=== PATIENT | female | born 2000 | race Two or more races ===

== ENCOUNTER 2023-04-09 12:10 | Observation (INO) | payer MEDICAID ==
[2023-04-09 13:43] LABS: Urine Bacteria FEW /hpf (None Seen); Urine Blood Negative /uL (Negative); Urine Clarity Clear (Clear); Urine Color Yellow (Yellow); Urine Mucus FEW (None Seen); Urine Protein, UAD TRACE (Negative); Urine Urobilinogen Normal (Negative); Urine WBC 28 /hpf (0 - 5)
[2023-04-09] MEDS ORDERED: PREN-96 PO (14:13)
[2023-04-09] MEDS ORDERED: CEPH250C PO (14:13)
== END 2023-04-09 14:08 | disposition home or self-care (01) ==
LOC: LDRP 12:10 → UNDOADMOB 12:10 → LDRP 12:40 → UNDODISOB 14:08
PROVIDERS: ADMIT Obstetrics & Gynecology; ATTEND Obstetrics & Gynecology
DX: O23.43 Unspecified infection of urinary tract in pregnancy, third trimester (principal); Z3A.36 36 weeks gestation of pregnancy; Z79.899 Other long term (current) drug therapy
CPT/HCPCS: 59025; 81001; 81002; 82948; G0378

== ENCOUNTER 2023-05-06 13:01 | Observation (INO) | payer MEDICAID ==
[~2023-05-06 13:01] MED LIST: CEPH250C PO; PREN-96 PO
== END 2023-05-06 14:28 | disposition home or self-care (01) ==
LOC: LDRP 13:01 → UNDOADMOB 13:01 → LDRP 13:08
PROVIDERS: ADMIT Obstetrics & Gynecology; ATTEND Obstetrics & Gynecology
DX: O48.0 Post-term pregnancy (principal); Z3A.40 40 weeks gestation of pregnancy; Z87.891 Personal history of nicotine dependence
CPT/HCPCS: 59025; 76818; 81002; G0378

== ENCOUNTER 2023-05-08 12:01 | Observation (INO) | payer MEDICAID | END 2023-05-08 13:33 | disposition home or self-care (01) | LOC: UNDOADMOB 12:01 → LDRP 12:01 → UNDODISOB 13:33 | PROVIDERS: ADMIT Obstetrics & Gynecology; ATTEND Obstetrics & Gynecology | DX: O48.0 Post-term pregnancy (principal); Z3A.40 40 weeks gestation of pregnancy; Z87.891 Personal history of nicotine dependence | CPT/HCPCS: 59025; 76818; 81002; G0378 ==

== ENCOUNTER 2023-05-10 10:51 | Observation (INO) | payer MEDICAID ==
[~2023-05-10] VITALS: Ht 170.2 cm; Wt 99.3 kg
[~2023-05-10 10:51] MED LIST changes: -CEPH250C PO
== END 2023-05-10 12:17 | disposition home or self-care (01) ==
LOC: LDRP 10:51
PROVIDERS: ADMIT Obstetrics & Gynecology; ATTEND Obstetrics & Gynecology
DX: O48.0 Post-term pregnancy (principal); Z87.891 Personal history of nicotine dependence; Z3A.40 40 weeks gestation of pregnancy
CPT/HCPCS: 59025; 76818; 81002; 94760; G0378

== ENCOUNTER 2023-05-12 11:00 | Inpatient (IN) | payer MEDICAID ==
[~2023-05-12] VITALS: Ht 170.2 cm; Wt 101.2 kg
[2023-05-12] MEDS ORDERED: PHISODERM TOP SOLN 240ML BTL TOP PRN (11:45)
[2023-05-12] MEDS ORDERED: WITCH HAZEL-GLYCERIN PAD TOP PRN (11:45)
[2023-05-12] MEDS ORDERED: BUTORPHANOL TARTRATE 2 MG/1 ML VIAL IV PRN ×2 (11:45)
[2023-05-12] MEDS ORDERED: LIDOCAINE 2%HCL (LOCAL ANESTH.) INJ 20ML MDV IJ PRN (11:45)
[2023-05-12] MEDS ORDERED: DERMOPLAST 60ML BOTTLE TOP PRN (11:45)
[2023-05-12] MEDS ORDERED: PROMETHAZINE HCL 25 MG/ML 1ML IV PRN (11:45)
[2023-05-12 12:03] LABS: Urine Bacteria MOD /hpf (None Seen); Urine Blood 2+ /uL (Negative); Urine Clarity CLOUDY (Clear); Urine Color Yellow (Yellow); Urine Hyaline Cast FEW /lpf (0 - 2); Urine Mucus FEW (None Seen); Urine Protein, UAD TRACE (Negative); Urine Specific Gravity 1.019 (1.001-1.035); Urine Urobilinogen Normal (Negative); Urine WBC 43 /hpf (0 - 5)
[2023-05-12 12:19] LABS: Amphetamine Screen, Urine Neg (NEGATIVE)
[2023-05-12 12:20] LABS: Barbiturate Scree,Urine Neg (NEGATIVE); Benzodiazephine Screen, Urine Neg (NEGATIVE); Cannabinoid Screen, Urine Neg (NEGATIVE); Cocaine Screen, Urine Neg (NEGATIVE); Opiate Scree,Urine Neg (NEGATIVE); Phencyclidine Screen, Urine Neg (NEGATIVE)
[2023-05-12 12:32] LABS: Basophils # (auto) 0 10 ^3/uL (0-0.2); Basophils % (auto) 0.3 % (0.0-2.0); Eosinophils # (auto) 0.1 10 ^3/uL (0-0.8); Hematocrit 35.3 % (36.0-46.0); Hemoglobin 11.6 g/dL (12.2-16.2); Lymphocytes # (auto) 1.2 10 ^3/uL (0.4-5.4); Lymphocytes % (auto) 13.3 % (10.0-50.0); Mean Corpuscular Hemoglobin 27.8 pg (28.0-32.0); Mean Corpuscular Hgb Conc. 32.9 g/dL (32.0-36.0); Mean Corpuscular Volume 84.4 fL (80.0-100.0); Monocytes # (auto) 0.7 10 ^3/uL (0-1.3); Monocytes % (auto) 7.5 % (0.0-12.0); Neutrophils # (auto) 6.8 10 ^3/uL (1.6-8.6); Neutrophils % (auto) 77.9 % (37.0-80.0); Red Blood Cells 4.18 10^6/uL (4.0-5.20); Red Cell Distribution Width 15.4 % (11.8-14.3); White Blood Cell 8.7 10^3/uL (4.4-10.8)
[2023-05-12 12:38] LABS: INR 0.96 (0.9-1.15); Partial Thromboplastin Time 28.8 SEC (24.5-34.5); Prothrombin Time 10.1 sec (9.3-11.8)
[2023-05-12 12:42] LABS: Alanine Aminotransferase 27 U/L (7-40); Albumin 3.7 g/dL (3.2-4.8); Alkaline Phosphatase 160 U/L (46-116); Anion Gap 9 (5-15); Aspartate Aminotransferase 20 U/L (13-40); BUN/Creatinine Ratio 8.9 (10.0-20.0); Blood Urea Nitrogen 5 mg/dL (9-23); Carbon Dioxide 21 mmol/L (20-30); Chloride 108 mmol/L (98-107); Glucose 77 mg/dL (74-106); Potassium 3.7 mmol/L (3.5-5.1); Sodium 138 mmol/L (136-145)
[2023-05-12 12:43] LABS: Bilirubin, Total 0.4 mg/dL (0.2-1.0); Total Protein 6.7 g/dL (5.7-8.2)
[2023-05-12] MEDS ORDERED: miSOPROStol 50 MCG per PRE-CUT 1/2 TAB PO PRN (14:15)
[2023-05-12] MEDS ORDERED: fentaNYL CITRATE 100 MCG/2 ML VL IV PRN (15:00)
[2023-05-12] MEDS ORDERED: MINERAL OIL TOPICAL 10ml TOP PRN (15:00)
[2023-05-12] MEDS ORDERED: PENICILLIN G POT 5MIL/D5 50ML 50 ML IV ONE (15:00)
[2023-05-12] MEDS ORDERED: PROMETHAZINE HCL 25 MG/ML 1ML IM PRN (15:00)
[2023-05-12] MEDS ORDERED: LACT. RINGERS/OXYTOCIN 20UNITS 1,000 ML IV SCH (15:30)
[2023-05-12] MEDS ORDERED: TERBUTALINE SULFATE 1 MG/ML 1ML VIAL SC PRN (15:30)
[2023-05-12] MEDS ORDERED: LACT. RINGERS/OXYTOCIN 20UNITS 500 ML IV ONE ×2 (15:30→16:00)
[2023-05-12] MEDS: LACTATED RINGER'S 1,000 ML IV SCH ×2 (17:08→18:24)
[2023-05-12] MEDS ORDERED: PENICILLIN G POTASSIUM 2,500,000 UNITS in D5W 5% 50 ML IV SCH (19:00)
[2023-05-13] MEDS ORDERED: LIDOCAINE HCL 2 %PF INJ 10ML AMP IJ ONE (00:45)
[2023-05-13] MEDS ORDERED: ePHEDrine SULFATE 50 MG/ML AMP IV ONE (00:45)
[2023-05-13] MEDS ORDERED: NALOXONE HCL 0.4 MG/ML VIAL IV ONE (00:45)
[2023-05-13] MEDS ORDERED: LACTATED RINGER'S 1,000 ML IV ONE (00:45)
[2023-05-13] MEDS ORDERED: fentaNYL CITRATE 100 MCG/2 ML VL IV ONE (00:45)
[2023-05-13] MEDS ORDERED: ROPIVACAINE HCL 100 ML ONE ×2 (01:22→06:29)
[2023-05-13] MEDS: LACTATED RINGER'S 1,000 ML IV SCH ×3 (04:34→19:45)
[2023-05-13 08:06] LABS: RPR Non Reactive (Non Reactive)
[2023-05-13] MEDS ORDERED: METHYLERGONOVINE MALEATE 0.2 MG/ML AMP IM ONE ×2 (10:13→10:15)
[2023-05-13] MEDS ORDERED: ACETAMINOPHEN 325 MG TAB PO PRN (10:15)
[2023-05-13] MEDS ORDERED: ONDANSETRON ODT 4 MG TAB PO PRN (10:15)
[2023-05-13] MEDS: IBUPROFEN 600 MG TAB PO PRN ×2 (13:14→19:31)
[2023-05-13] MEDS: ceFAZolin 1GM/50ML 50 ML IV SCH ×2 (14:08→21:37)
[2023-05-13 15:00] VITALS: BP 109/72; PULSE 98; RESP 17; TEMP 98.6; O2SAT 97
[2023-05-13 19:00] VITALS: BP 118/70; PULSE 98; RESP 12; TEMP 98.1; O2SAT 96
[2023-05-13 23:05] VITALS: BP 116/69; PULSE 91; RESP 17; TEMP 98.6; O2SAT 95
[2023-05-14] MEDS ORDERED: FERR30CA PO (03:38)
[2023-05-14] MEDS ORDERED: IBU600T PO (03:38)
[2023-05-14] MEDS ORDERED: DOCU-94 PO (03:38)
[2023-05-14] MEDS: LACTATED RINGER'S 1,000 ML IV SCH (03:45)
[2023-05-14 04:00] VITALS: BP 124/84; PULSE 78; RESP 12; TEMP 98.2; O2SAT 96
[2023-05-14] MEDS: IBUPROFEN 600 MG TAB PO PRN (05:06)
[2023-05-14] MEDS: ceFAZolin 1GM/50ML 50 ML IV SCH (05:45)
[2023-05-14 06:26] LABS: Basophils # (auto) 0 10 ^3/uL (0-0.2); Basophils % (auto) 0.3 % (0.0-2.0); Eosinophils # (auto) 0.2 10 ^3/uL (0-0.8); Eosinophils % (auto) 1.7 % (0.0-7.0); Hematocrit 30.6 % (36.0-46.0); Hemoglobin 9.9 g/dL (12.2-16.2); Lymphocytes # (auto) 1.7 10 ^3/uL (0.4-5.4); Lymphocytes % (auto) 15.5 % (10.0-50.0); Mean Corpuscular Hemoglobin 27.3 pg (28.0-32.0); Mean Corpuscular Hgb Conc. 32.3 g/dL (32.0-36.0); Mean Corpuscular Volume 84.7 fL (80.0-100.0); Monocytes # (auto) 0.8 10 ^3/uL (0-1.3); Monocytes % (auto) 7.1 % (0.0-12.0); Neutrophils # (auto) 8.2 10 ^3/uL (1.6-8.6); Neutrophils % (auto) 75.4 % (37.0-80.0); Red Blood Cells 3.62 10^6/uL (4.0-5.20); Red Cell Distribution Width 15.3 % (11.8-14.3); White Blood Cell 10.8 10^3/uL (4.4-10.8)
[2023-05-14 07:00] VITALS: BP 117/62; PULSE 90; RESP 20; TEMP 98.4; O2SAT 95
[2023-05-14] MEDS ORDERED: TETANUS-DIPTH-ACEL PERTUSSIS 0.5ML SYR Tdap IM ONE (10:00)
[2023-05-14 19:06] LABS: Treponema pallidum Ab (FTA-Ab) Non Reactive (Non Reactive)
== END 2023-05-14 11:28 | disposition home or self-care (01) | DRG 560 ==
LOC: LDRP 11:00 → OBSVTOIN 11:00 → LDRP 12:43
PROVIDERS: ADMIT Obstetrics & Gynecology; ATTEND Obstetrics & Gynecology
PROC: 10E0XZZ Delivery of Products of Conception, External Approach (ICD-10-PCS; principal; 2023-05-13)
PROC: 0UQMXZZ Repair Vulva, External Approach (ICD-10-PCS; 2023-05-13)
PROC: 3E0R3BZ Introduction of Anesthetic Agent into Spinal Canal, Percutaneous Approach (ICD-10-PCS; 2023-05-13)
PROC: 00HU33Z Insertion of Infusion Device into Spinal Canal, Percutaneous Approach (ICD-10-PCS; 2023-05-13)
DX: O48.0 Post-term pregnancy (principal); Z37.0 Single live birth; D64.9 Anemia, unspecified; O71.82 Other specified trauma to perineum and vulva; O99.824 Streptococcus B carrier state complicating childbirth; O77.0 Labor and delivery complicated by meconium in amniotic fluid; O90.81 Anemia of the puerperium; Z3A.41 41 weeks gestation of pregnancy
CPT/HCPCS: 36415; 59025; 59409; 80053; 80307; 81001; 85025; 85610; 85730; 86592; 86850; 86900; 86901; 90715; 94760; 94762; 96360; 96361; 96365; 96366; 96372; G0378; J2540; J2590; J7060

== ENCOUNTER 2024-11-02 11:35 | Observation (INO) | payer MEDICAID ==
[~2024-11-02 11:35] MED LIST changes: +DOCU-94 PO; +FERR30CA PO; +IBU600T PO
[2024-11-02] MEDS ORDERED: CHOL20007 PO (12:22)
[2024-11-02 12:25] LABS: Hematocrit 35.7 % (36.0-46.0); Hemoglobin 12.1 g/dL (12.2-16.2); Mean Corpuscular Hemoglobin 27.9 pg (28.0-32.0); Mean Corpuscular Volume 82.7 fL (80.0-100.0); Nucleated Red Blood Cells % 0.1 %
[2024-11-02 12:37] LABS: Urine Protein, UAD TRACE (Negative)
[2024-11-02 12:38] LABS: Alanine Aminotransferase 22 U/L (7-40); Albumin 3.9 g/dL (3.2-4.8); Alkaline Phosphatase 123 U/L (46-116); Anion Gap 9 (5-15); BUN/Creatinine Ratio 14.8 (10.0-20.0); Bilirubin, Total 0.3 mg/dL (0.2-1.0); Blood Urea Nitrogen 8 mg/dL (9-23); Calcium 8.5 mg/dL (8.7-10.4); Carbon Dioxide 23 mmol/L (20-31); Chloride 107 mmol/L (98-107); Glucose 83 mg/dL (74-106); Potassium 3.8 mmol/L (3.5-5.1); Sodium 139 mmol/L (136-145); Total Protein 6.9 g/dL (5.7-8.2); Uric Acid 3.5 mg/dL (3.1-7.8)
[2024-11-02 12:41] LABS: INR 0.97 (0.9-1.15); Partial Thromboplastin Time 28.0 SEC (24.5-34.5); Prothrombin Time 10.3 sec (9.3-11.8)
[2024-11-02 12:46] LABS: Protein, Urine 34.7 mg/dL (1-14)
--- NOTE | 2024-11-02 14:16 | DVH ---
CLINICAL HISTORY: -induced hypertension. COMPARISON: US BIOPHYSICAL PROFILE on DOS: 05/10/23, US BIOPHYSICAL PROFILE on DOS: 05/08/23, US BIOPHYSI LAUREL PROFILE on DOS: 05/06/23 TECHNIQUE: biophysical profile was performed. Transabdominal sonographic images of the fetus we re obtained. Transvaginal imaging was performed to evaluate the cervix. FINDINGS: The fetus is in cephalic position. heart rate measures 152 BPM. Amniotic fluid index measures 16.4 cm. The placenta is posterior in position without evidence of previa or abruption. Cerv ix appears closed on transvaginal examination measures up to 3.9 cm in length. BPP profile is an overall score of 6/8, with 0/2 points for breathing, without at least o ne episode of breathing over a 30 second duration during a 30 minute observation, 2/2 points for feta l movements, with 3 or more discrete body or limb movements, 2/2 points for tone, with one or m ore episodes of extremity extension with return to flexion, or opening and closing of hand, and 2/2 points for amniotic fluid, with at least 1 pocket of amniotic fluid that measures 2 cm in 2 perp endicular planes. IMPRESSION: 1. BPP score of 6/8, with 0/2 score for breathing. 2. Cervix appears closed and measures 3.9 cm.
--- NOTE | 2024-11-04 08:00 | DVHDS2 ---
Physician Discharge Progress N Final Diagnosis: pih Operations or Procedures: Operations or Procedures nst reactive reviwed,sono Condition on Discharge: Good Disposition: Home Discharge Instructions: Diet: Regular Activity: No Restrictions, As Tolerated Medications: na Follow Up Care: Specialist: 1d Discharge Statement: "Patient was advised to return to the ER or call 911 if any headaches, dizziness, shortness of breath, chest pain, abdominal pain, bleeding, fevers, or worsening of medical condition. Patient was counseled about treatment plan, medications, possible side effects, patientverbalized understanding. All questions were answered to the best of my ability. This discharge took greater then 30 minutes in planning, reviewing documentation, counseling the patient, and discussing with other team members." Visit Coding OBGYN Date of Service: Nov 02, 2024 Billing Provider: LILLY BUSTAMANTE DO DIRECT SUPPORT PROFESSIONAL Common Visit Codes: [id number] INP/OBS CARE (HIGH) DIRECT SUPPORT PROFESSIONAL Procedure Codes: 69325-03- NON-STRESS TEST LILLY BUSTAMANTE DO Nov 04, 2024 08:00
== END 2024-11-02 14:08 | disposition home or self-care (01) ==
LOC: LDRP 11:35
PROVIDERS: ADMIT Obstetrics & Gynecology; ATTEND Obstetrics & Gynecology
DX: O13.3 Gestational [pregnancy-induced] hypertension without significant proteinuria, third trimester (principal); Z3A.36 36 weeks gestation of pregnancy; Z79.899 Other long term (current) drug therapy; Z98.890 Other specified postprocedural states
CPT/HCPCS: 36415; 59025; 76817; 76819; 80053; 81001; 81002; 82570; 84156; 84550; 85025; 85610; 85730; 94760; G0378

== ENCOUNTER 2024-11-03 08:02 | Observation (INO) | payer MEDICAID ==
[~2024-11-03 08:02] MED LIST changes: +CHOL20007 PO
--- NOTE | 2024-11-03 09:05 | DVH ---
BIOPHYSICAL PROFILE HISTORY: PIH TECHNIQUE: Multiple transabdominal real-time grayscale sonographic images through the gravid uterus o f the fetus with duplex doppler color flow and M-mode spectral analysis FINDINGS: BIOPHYSICAL PROFILE: breathing score: 2 movement score: 2 tone score: 2 Quantitative DENIZ score: 2 (DENIZ: 15.2 cm.) Total score: 8/8 Single live fetus in cephalic presentation. heart rate 149 beats per minute. Posterior placenta without previa or abruption Biophysical profile score 8/8 corresponding to an MATTIE of 11/29/24 IMPRESSION: Biophysical profile score: 8/8
--- NOTE | 2024-11-04 07:50 | DVHDS2 ---
Physician Discharge Progress N Final Diagnosis: pih 36wks Operations or Procedures: Operations or Procedures nst reactive reviwed,sono Condition on Discharge: Good Disposition: Home Discharge Instructions: Diet: Consistent carbohydrate Activity: No Restrictions, As Tolerated Medications: na Follow Up Care: Specialist: 3d Discharge Statement: "Patient was advised to return to the ER or call 911 if any headaches, dizziness, shortness of breath, chest pain, abdominal pain, bleeding, fevers, or worsening of medical condition. Patient was counseled about treatment plan, medications, possible side effects, patientverbalized understanding. All questions were answered to the best of my ability. This discharge took greater then 30 minutes in planning, reviewing documentation, counseling the patient, and discussing with other team members." Visit Coding OBGYN Date of Service: Nov 03, 2024 Billing Provider: LILLY BUSTAMANTE DO SELF SEALING FUEL TANK BUILDER Common Visit Codes: [id number] INP/OBS CARE (HIGH) SELF SEALING FUEL TANK BUILDER Procedure Codes: 24654-49- NON-STRESS TEST LILLY BUSTAMANTE DO Nov 04, 2024 07:50
== END 2024-11-03 09:16 | disposition home or self-care (01) ==
LOC: LDRP 08:02 → UNDOADMOB 08:02 → LDRP 08:15 → UNDODISOB 09:16
PROVIDERS: ADMIT Obstetrics & Gynecology; ATTEND Obstetrics & Gynecology
DX: O13.3 Gestational [pregnancy-induced] hypertension without significant proteinuria, third trimester (principal); Z3A.36 36 weeks gestation of pregnancy; Z79.899 Other long term (current) drug therapy
CPT/HCPCS: 59025; 76819; 81002; 94760; G0378

== ENCOUNTER 2024-11-06 10:52 | Observation (INO) | payer MEDICAID ==
[2024-11-06 11:34] LABS: Protein, Urine 38.0 mg/dL (1-14)
--- NOTE | 2024-11-06 11:34 | DVH ---
BIOPHYSICAL PROFILE HISTORY: PIH Comparison Study: US BIOPHYSICAL PROFILE on DOS: 11/03/24, US BIOPHYSICAL PROFILE on DOS: 11/02/24, US BI OPHYSICAL PROFILE on DOS: 05/10/23 TECHNIQUE: Multiple real-time grayscale sonographic images through the gravid uterus of the fetus wit h duplex doppler color flow and M-mode spectral analysis FINDINGS: BIOPHYSICAL PROFILE: breathing score: 2 movement score: 2 tone score: 2 Quantitative DENIZ score: 2 (DENIZ: 11.6 cm.) Total score: 8/8 Single live fetus in cephalic presentation. heart rate 144 beats per minute. Posterior placenta without previa or abruption Biophysical profile score 8/8 corresponding to an MATTIE of 11/29/24 IMPRESSION: Biophysical profile score: 8/8
[2024-11-06 11:39] LABS: Urine Total Volume, 24 Hours 250.0 mL
[2024-11-06 12:12] LABS: 24 Hr. Total Protein, Urine 73.5 mg/24 Hr (<149.1); Protein, Urine 29.4 mg/dL (1-14)
--- NOTE | 2024-11-06 21:23 | DVHDS2 ---
Physician Discharge Progress N Final Diagnosis: pih ruled out 36wks Operations or Procedures: Operations or Procedures nst reactive reviwed,sono Condition on Discharge: Good Disposition: Home Discharge Instructions: Diet: Regular Activity: Light activity Medications: na Follow Up Care: Specialist: 1w Discharge Statement: "Patient was advised to return to the ER or call 911 if any headaches, dizziness, shortness of breath, chest pain, abdominal pain, bleeding, fevers, or worsening of medical condition. Patient was counseled about treatment plan, medications, possible side effects, patientverbalized understanding. All questions were answered to the best of my ability. This discharge took greater then 30 minutes in planning, reviewing documentation, counseling the patient, and discussing with other team members." Visit Coding OBGYN Date of Service: Nov 06, 2024 Billing Provider: LILLY BUSTAMANTE DO CAN WORKER Common Visit Codes: [id number] INP/OBS CARE (LOW), [id number] INP/OBS CARE (HIGH) CAN WORKER Procedure Codes: 58422-07- NON-STRESS TEST LILLY BUSTAMANTE DO Nov 06, 2024 21:23
== END 2024-11-06 12:29 | disposition home or self-care (01) ==
LOC: LDRP 10:52
PROVIDERS: ADMIT Obstetrics & Gynecology; ATTEND Obstetrics & Gynecology
DX: O13.3 Gestational [pregnancy-induced] hypertension without significant proteinuria, third trimester (principal); Z3A.36 36 weeks gestation of pregnancy; Z79.899 Other long term (current) drug therapy; Z98.890 Other specified postprocedural states
CPT/HCPCS: 59025; 76819; 81002; 82570; 84156; 94760; G0378

== ENCOUNTER 2024-11-29 11:32 | Observation (INO) | payer MEDICAID ==
[~2024-11-29] VITALS: Ht 170.2 cm; Wt 105.2 kg
[2024-11-29 13:00] LABS: Hematocrit 37.4 % (36.0-46.0); Hemoglobin 12.6 g/dL (12.2-16.2); Mean Corpuscular Hemoglobin 29.3 pg (28.0-32.0); Mean Corpuscular Volume 86.9 fL (80.0-100.0); Nucleated Red Blood Cells % 0.1 %
[2024-11-29 13:12] LABS: INR 0.94 (0.9-1.15); Partial Thromboplastin Time 27.7 SEC (24.5-34.5); Prothrombin Time 10.0 sec (9.3-11.8)
[2024-11-29 13:13] LABS: Alanine Aminotransferase 25 U/L (7-40); Albumin 3.7 g/dL (3.2-4.8); Anion Gap 7 (5-15); BUN/Creatinine Ratio 15.4 (10.0-20.0); Carbon Dioxide 24 mmol/L (20-31); Potassium 4.0 mmol/L (3.5-5.1); Sodium 139 mmol/L (136-145); Total Protein 6.5 g/dL (5.7-8.2); Uric Acid 3.8 mg/dL (3.1-7.8)
[2024-11-29 13:17] LABS: Alkaline Phosphatase 134 U/L (46-116); Bilirubin, Total 0.2 mg/dL (0.2-1.0); Blood Urea Nitrogen 8 mg/dL (9-23); Calcium 8.5 mg/dL (8.7-10.4); Chloride 108 mmol/L (98-107); Glucose 111 mg/dL (74-106)
--- NOTE | 2024-11-29 13:20 | DVH ---
BIOPHYSICAL PROFILE HISTORY: PIH TECHNIQUE: Multiple transabdominal real-time grayscale sonographic images through the gravid uterus of the fetus with duplex Doppler color flow and M-mode spectral analysis FINDINGS: BIOPHYSICAL PROFILE: breathing score: 2 movement score: 2 tone score: 2 Quantitative DENIZ score: 2 (DENIZ: 11.2 Cm.) Total score: 8 The cervix is not well-visualized Single live fetus in cephalic presentation. heart rate 162 beats per minute. Fundal placenta without previa or abruption IMPRESSION: Biophysical profile score: 8
[2024-11-29 13:49] LABS: Urine Protein, UAD 1+ (Negative)
[2024-11-29 13:51] LABS: Protein, Urine 26.8 mg/dL (1-14)
--- NOTE | 2024-11-29 14:53 | DVHDS2 ---
Physician Discharge Progress N Final Diagnosis: term ruled out preeclampsia Operations or Procedures: Operations or Procedures S: 24yo IUP@40.0wks, +FM, denies UCs/LOF/VB/COLLINS/vision changes/RUQ pain. Pt sent down from office from elevated BP. PNC with Dr. Selby, uncomplicated. O: VSS NST reactive SVE by RN: 0/0/-2 Laboratory Tests Test 11/29/24 12:00 11/29/24 12:18 Range/Units Urine Color Light-orange Yellow Urine Clarity Turbid H Clear Urine pH 7.0 5.0-9.0 Urine Specific [place] 1.025 1.001-1.035 Urine Protein 1+ H Negative Urine Ketones Negative Negative Urine Blood Negative Negative /uL Urine Nitrite Negative Negative Urine Bilirubin Negative Negative Urine Urobilinogen Normal Negative mg/dL Urine Leukocyte Esterase 2+ Negative /uL Urine RBC 8 0 - 4 /hpf Urine Microscopic WBC 11 H 0-5 /HPF Urine Squamous Epithelial Cells Mod <5 /hpf Urine Bacteria Many H None Seen /hpf Urine Mucus Few None Seen Urine Creatinine 120.01 30.0-125.0 mg/dL Urine Protein/Creatinine Ratio 0.22 Urine Glucose Trace Normal mg/dL Urine Total Protein 26.8 H 1-14 mg/dL White Blood Count 8.5 4.4-10.8 10^3/uL Red Blood Count 4.30 4.0-5.20 10^6/uL Hemoglobin 12.6 12.2-16.2 g/dL Hematocrit 37.4 36.0-46.0 % Mean Corpuscular Volume 86.9 80.0-100.0 fL Mean Corpuscular Hemoglobin 29.3 28.0-32.0 pg Mean Corpuscular Hemoglobin Concent 33.7 32.0-36.0 g/dL Red Cell Distribution Width 20.8 H 11.8-14.3 % Platelet Count 215 140-450 10^3/uL Mean Platelet Volume 8.4 6.9-10.8 fL Neutrophils (%) (Auto) 79.6 37.0-80.0 % Lymphocytes (%) (Auto) 12.7 10.0-50.0 % Monocytes (%) (Auto) 6.5 0.0-12.0 % Eosinophils (%) (Auto) 0.9 0.0-7.0 % Basophils (%) (Auto) 0.3 0.0-2.0 % Neutrophils # (Auto) 6.8 1.6-8.6 10 ^3/uL Lymphocytes # (Auto) 1.1 0.4-5.4 10 ^3/uL Monocytes # (Auto) 0.6 0-1.3 10 ^3/uL Eosinophils # (Auto) 0.1 0-0.8 10 ^3/uL Basophils # (Auto) 0 0-0.2 10 ^3/uL Nucleated Red Blood Cells 0.1 % Prothrombin Time 10.0 9.3-11.8 sec Prothrombin Time INR 0.94 0.9-1.15 Activated Partial Thromboplast Time 27.7 24.5-34.5 SEC Sodium Level 139 136-145 mmol/L Potassium Level 4.0 3.5-5.1 mmol/L Chloride Level 108 H 98-107 mmol/L Carbon Dioxide Level 24 20-31 mmol/L Anion Gap 7 5-15 Blood Urea Nitrogen 8 L 9-23 mg/dL Creatinine 0.52 L 0.550-1.02 mg/dL Glomerular Filtration Rate Calc 132 >90 mL/min BUN/Creatinine Ratio 15.4 10.0-20.0 Serum Glucose 111 H 74-106 mg/dL Uric Acid 3.8 3.1-7.8 mg/dL Calcium Level 8.5 L 8.7-10.4 mg/dL Total Bilirubin 0.2 0.2-1.0 mg/dL Aspartate Amino Transferase (AST) 19 13-40 U/L Alanine Aminotransferase (ALT) 25 7-40 U/L Alkaline Phosphatase 134 H 46-116 U/L Total Protein 6.5 5.7-8.2 g/dL Albumin 3.7 3.2-4.8 g/dL A: 24yo IUP@40.0wks term ruled out preeclampsia P: D/C home FKC/preE/labor precautions reviewed f/u in 2 days with 24hour urine collection Dr. Selby consulted, agrees with POC. Other Interventions Other Interventions [address] [address] Ph: [phone] DIAGNOSTIC IMAGING Diagnostic Imaging Report : [id number] Signed PATIENT: JAYANT INGRAM ACCT: [id number] UNIT: [id number] : 2000 LOC: LD ROOM / BED: TRIAGE2 / A AGE / SEX: 24 / F ADM STATUS: ADM IN SERVICE 1153 ORDERING PHYSICIAN: WILLIE VALDEZ CNM PROCEDURE(s): BPP - BIOPHYSICAL PROFILE REASON: PIH ORDER NUMBER(s): [id number], ACCESSION NUMBER(s): [id number] BIOPHYSICAL PROFILE HISTORY: PIH TECHNIQUE: Multiple transabdominal real-time grayscale sonographic images through the gravid uterus of the fetus with duplex Doppler color flow and M-mode spectral analysis FINDINGS: BIOPHYSICAL PROFILE: breathing score: 2 movement score: 2 tone score: 2 Quantitative DENIZ score: 2 (DENIZ: 11.2 Cm.) Total score: 8 The cervix is not well-visualized Single live fetus in cephalic presentation. heart rate 162 beats per minute. Fundal placenta without previa or abruption IMPRESSION: Biophysical profile score: 8 ATED BY: EMELINA LI DO DICTATED DATE/TIME: 11/29/24 1318 SIGNED BY: EMELINA LI DO SIGNED DATE/TIME: 11/29/24 1318 CC: Condition on Discharge: Stable Disposition: Home Discharge Instructions: Diet: Regular Activity: No Restrictions, As Tolerated Medications: see med list Follow Up Care: Specialist: f/u in 2 days with 24hour urine collection Discharge Statement: "Patient was advised to return to the ER or call 911 if any headaches, dizziness, shortness of breath, chest pain, abdominal pain, bleeding, fevers, or worsening of medical condition. Patient was counseled about treatment plan, medications, possible side effects, patientverbalized understanding. All questions were answered to the best of my ability. This discharge took greater then 30 minutes in planning, reviewing documentation, counseling the patient, and discussing with other team members." Visit Coding OBGYN Date of Service: Nov 29, 2024 Billing Provider: WILLIE VALDEZ CNM CRISIS MENTAL HEALTH THERAPIST Common Visit Codes: [id number] OBS CARE (HIGH) CRISIS MENTAL HEALTH THERAPIST Procedure Codes: 84229-95- NON-STRESS TEST WILLIE VALDEZ CNM Nov 29, 2024 14:52
== END 2024-11-29 14:30 | disposition home or self-care (01) ==
LOC: UNDOADMOB 11:32 → LDRP 11:32
PROVIDERS: ADMIT Obstetrics & Gynecology; ATTEND Obstetrics & Gynecology
DX: O48.0 Post-term pregnancy (principal); O13.3 Gestational [pregnancy-induced] hypertension without significant proteinuria, third trimester; Z98.890 Other specified postprocedural states; Z79.899 Other long term (current) drug therapy; Z3A.40 40 weeks gestation of pregnancy
CPT/HCPCS: 36415; 59025; 76819; 80053; 81001; 81002; 82570; 84156; 84550; 85025; 85610; 85730; 94760; G0378

== ENCOUNTER 2024-12-01 05:18 | Inpatient (IN) | payer MEDICAID ==
[~2024-12-01] VITALS: Ht 170.2 cm; Wt 105.2 kg
[2024-12-01] MEDS ORDERED: BUTORPHANOL TARTRATE 2 MG/1 ML VIAL IV PRN ×2 (07:30)
[2024-12-01] MEDS ORDERED: LIDOCAINE 2%HCL (LOCAL ANESTH.) INJ 20ML MDV IJ PRN (07:30)
[2024-12-01 08:05] LABS: Hematocrit 40.5 % (36.0-46.0); Hemoglobin 13.6 g/dL (12.2-16.2); Mean Corpuscular Hemoglobin 29.1 pg (28.0-32.0); Mean Corpuscular Volume 86.8 fL (80.0-100.0); Nucleated Red Blood Cells % 0.1 %
[2024-12-01 08:15] LABS: Urine Protein, UAD Negative (Negative)
[2024-12-01 08:20] LABS: INR 0.93 (0.9-1.15); Partial Thromboplastin Time 28.2 SEC (24.5-34.5); Prothrombin Time 9.9 sec (9.3-11.8)
[2024-12-01 08:25] LABS: Alanine Aminotransferase 23 U/L (7-40); Albumin 4.1 g/dL (3.2-4.8); Anion Gap 9 (5-15); BUN/Creatinine Ratio 15.5 (10.0-20.0); Blood Urea Nitrogen 9 mg/dL (9-23); Calcium 9.4 mg/dL (8.7-10.4); Carbon Dioxide 22 mmol/L (20-31); Chloride 107 mmol/L (98-107); Glucose 98 mg/dL (74-106); Potassium 4.0 mmol/L (3.5-5.1); Sodium 138 mmol/L (136-145); Total Protein 7.0 g/dL (5.7-8.2)
[2024-12-01 08:27] LABS: Alkaline Phosphatase 143 U/L (46-116); Bilirubin, Total 0.3 mg/dL (0.2-1.0)
--- NOTE | 2024-12-01 08:30 | DVH ---
BIOPHYSICAL PROFILE HISTORY: Term, vaginal bleeding Comparison Study: US BIOPHYSICAL PROFILE on DOS: 11/29/24, US BIOPHYSICAL PROFILE on DOS: 11/06/24, US B IOPHYSICAL PROFILE on DOS: 11/03/24, US BIOPHYSICAL PROFILE on DOS: 11/02/24, US BIOPHYSICAL PROFILE on D OS: 05/10/23 TECHNIQUE: Multiple real-time grayscale sonographic images through the gravid uterus of the fetus wi th duplex Doppler color flow and M-mode spectral analysis FINDINGS: BIOPHYSICAL PROFILE: breathing score: 2 movement score: 2 tone score: 2 Quantitative DENIZ score: 2 (DENIZ: 9.5 Cm.) Total score: 8 The cervix is not visualized Single live fetus in cephalic presentation. heart rate 142 beats per minute. Fundal placenta without previa or abruption IMPRESSION: Biophysical profile score: 8
[2024-12-01 08:31] LABS: Protein, Urine < 6.0 mg/dL (1-14)
[2024-12-01 08:33] LABS: Amphetamine Screen, Urine Neg (NEGATIVE); Barbiturate Scree,Urine Neg (NEGATIVE); Benzodiazephine Screen, Urine Neg (NEGATIVE); Cannabinoid Screen, Urine Neg (NEGATIVE); Cocaine Screen, Urine Neg (NEGATIVE); Opiate Scree,Urine Neg (NEGATIVE); Phencyclidine Screen, Urine Neg (NEGATIVE)
[2024-12-01] MEDS: LACTATED RINGER'S 1,000 ML IV SCH (08:40)
--- NOTE | 2024-12-01 09:48 | DVHHP ---
ADMIT DATE: 12/01/2024 CHIEF COMPLAINT: Labor pain. HISTORY OF PRESENT ILLNESS: The patient is a 24-year-old 2, para 2 with EDC 11/29, estimated gestational age of 40+ weeks, admitted for early labor. The patient was having some variables and NST was not quite reactive. Subsequently, decision was made to proceed with induction of labor since the patient is post-dates. She denies having leakage or vaginal bleeding. PAST MEDICAL HISTORY: None. PAST SURGICAL HISTORY: None. SOCIAL HISTORY: None. FAMILY HISTORY: None. OBSTETRIC AND GYNECOLOGIC HISTORY: Two normal vaginal deliveries. REVIEW OF SYSTEMS: Consistent with HPI. PHYSICAL EXAMINATION: VITAL SIGNS: Stable, afebrile. HEENT: Within normal limits. CARDIOVASCULAR: Regular rate and rhythm. LUNGS: Clear to auscultation. BREASTS: Symmetrical. No masses. ABDOMEN: Gravid. Positive heart. Estimated weight 7 pounds 2 ounces. PELVIC: 1 cm, 50%, -3. Vertex. EXTREMITIES: No clubbing, cyanosis, or edema. IMPRESSION: Intrauterine at 40+ weeks in early labor, induction of labor. PLAN: Induction of labor. Informed consent obtained. Risks, complication of induction discussed with the patient. Options reviewed. All questions answered. The patient fully understands. She wishes to proceed with induction of labor. DO RITESH Rosas/ANUSHA TID: [id number] RECEIPT: [id number]
--- NOTE | 2024-12-01 12:08 | DVHPN2 ---
Chief Complaints Patient reports: No new complaints Nursing reports: No new complaints Objective Medications Current Medications Medications (Trade) Dose Ordered Sig/[place] Route PRN Reason Start Time Stop Time Status Last Admin Benzocaine (Dermoplast) 1 applic PRN PRN TOP PERINEAL AREA DISCOMFORT 12/01/24 07:30 Butorphanol Tartrate (Stadol Injection) 1 mg Q4HPRN PRN IV MODERATE PAIN (4-6 PAIN SCALE) 12/01/24 07:30 Butorphanol Tartrate (Stadol Injection) 2 mg Q4HPRN PRN IV SEVERE PAIN (7-10 PAIN SCALE) 12/01/24 07:30 Lactated Ringer's 1,000 ml @ 125 mls/hr Q8H IV 12/01/24 07:30 12/01/24 08:40 Lidocaine HCl (Xylocaine) 20 ml ONCE PRN IJ PERINEAL AREA DISCOMFORT 12/01/24 07:30 Misoprostol (Cytotec) 50 mcg Q4HPRN PRN PO CERVICAL RIPENING 12/01/24 07:30 12/01/24 08:38 Sodium Lauryl Sulfate (Phisoderm) 240 ml PRN PRN TOP PERINEAL AREA DISCOMFORT 12/01/24 07:30 Witch Luisa (Tucks) 1 pad PRN PRN TOP PERINEAL AREA DISCOMFORT 12/01/24 07:30 Others ve- unchanged Studies Laboratory Tests 12/01/24 07:44 Test 12/01/24 07:44 Range/Units Serum Glucose 98 74-106 mg/dL Ass/Plan Assessment early labor Plan rec one cytotec Visit Coding OBGYN Date of Service: Dec 01, 2024 Billing Provider: LILLY BUSTAMANTE DO BRAKE REPAIRER Common Visit Codes: [id number] OBS CARE (HIGH) BRAKE REPAIRER Procedure Codes: 58028-22- NON-STRESS TEST LILLY BUSTAMANTE DO Dec 01, 2024 12:08
[2024-12-01] MEDS ORDERED: LIDOCAINE 2% (LOCAL ANESTH.) PF 5ml SDV ONE (12:23)
[2024-12-01] MEDS: fentaNYL CITRATE 100 MCG/2 ML VL ONE (12:44)
[2024-12-01] MEDS ORDERED: LIDOCAINE HCL 2 %PF INJ 10ML AMP IJ ONE (12:45)
[2024-12-01] MEDS: ROPIVACAINE HCL 100 ML ONE (12:45)
[2024-12-01] MEDS ORDERED: NALOXONE HCL 0.4 MG/ML VIAL IV ONE (12:45)
[2024-12-01] MEDS ORDERED: ROPIVACAINE 0.5% (5MG/ML) 20ML AMPULE IJ ONE (12:45)
[2024-12-01] MEDS ORDERED: LACTATED RINGER'S 500 ML IV ONE (12:45)
[2024-12-01] MEDS ORDERED: fentaNYL CITRATE 100 MCG/2 ML VL IV ONE (12:45)
--- NOTE | 2024-12-01 13:07 | EPIDURAL ---
Anesthesia Procedural Note - Epidural Informed consent obtained?: Yes Medication Administered: Fentanyl 100 mcg Sterile prept drape: Yes Spinal level of insertion: L4-L5 Test dose of lidocaine & Epine: Negative Infusion started: Yes Start time: 12:25 End time: 12:55 Procedure description Procedure description: Called for labor analgesia. History taken, patient examined, chart reviewed. Patient is , in labor, requesting epidural. Informed consent obtained for CSE. Sitting position, sterile prep and drape. Time out done at 1230 (BP 130/69 HR 93 spO2 98). L3-4 space infiltrated with 1% lido. Unable to access the space with epidural needle. L4-5 space infiltrated with 1% lido. Epidural needle placed with PRETTY at 7cm. 25G spinal needle +clear CSF. 15mcg fentanyl given IT. Epidural catheter secured at 12cm. Aspiration and test dose (3cc 1.5 % lido with epi) negative. 85mcg fentanyl given via epidural (BP 121/61 HR 92 spO2 98). Patient reports pain relief. 0.2% ropivacaine infusion started. Will follow as needed. TRISTEN JOSEPH MD Dec 01, 2024 13:07
[2024-12-01] MEDS ORDERED: TERBUTALINE SULFATE 1 MG/ML 1ML VIAL SC PRN ×2 (13:30)
[2024-12-01] MEDS: LACT. RINGERS/OXYTOCIN 20UNITS 1,000 ML IV SCH (14:38)
--- NOTE | 2024-12-01 15:54 | LDN2 ---
Labor and Delivery Note Date 12/01/24 Age 24 3 Para 3 EDC 7-29 EGA 40WKS Diagnosis IOL EARLY LABOR,MORBID OBESITY Vaginal Delivery: VTX Vacuum Assisted: No Placenta: Spontaneous Sex: Female Apgars 9-9 Nuchal Cord Transected: No Amniotic Fluid: Thin Anesthesia EPIDURAL Episiotomy: No Extension: No EBL 300ML Labs Blood Bank 12/01/24 07:44: Blood Type A POSITIVE Complications NONE Conditions STABLE Comments/Significant Med Christiano SPEC EXAM NO CXAL LAC ,MANUAL REMOVAL OF PLACENTA DONE Visit Coding OBGYN Date of Service: Dec 01, 2024 Billing Provider: LILLY BUSTAMANTE DO LEGISLATIVE ANALYST Common Visit Codes: 16541-[id number] OBS CARE (HIGH) LEGISLATIVE ANALYST Procedure Codes: 49709-YZC DELIVERY ONLY LILLY BUSTAMANTE DO Dec 01, 2024 15:54
[2024-12-01] MEDS: LACT. RINGERS/OXYTOCIN 20UNITS 500 ML IV ONE ×2 (16:07→16:08)
[2024-12-01] MEDS: ceFAZolin 2 GM/D5W50ml 50 ML IV ONE (16:30)
[2024-12-01] MEDS: METHYLERGONOVINE MALEATE 0.2 MG/ML AMP IM ONE (16:34)
[2024-12-01] MEDS: DERMOPLAST 60ML BOTTLE TOP PRN (18:05)
[2024-12-01] MEDS: WITCH HAZEL-GLYCERIN PAD TOP PRN (18:05)
[2024-12-01] MEDS: PHISODERM TOP SOLN 240ML BTL TOP PRN (18:06)
[2024-12-01] MEDS: IBUPROFEN 600 MG TAB PO PRN (18:49)
[2024-12-01 19:25] VITALS: BP 130/71; PULSE 92; RESP 16; TEMP 98.1; O2SAT 99
[2024-12-01] MEDS: ACETAMINOPHEN 325 MG TAB PO PRN (23:23)
[2024-12-01 23:30] VITALS: BP 115/72; PULSE 82; RESP 18; TEMP 98.1; O2SAT 99
[2024-12-01] MEDS: ceFAZolin 1GM/50ML 50 ML IV SCH (23:30)
--- NOTE | 2024-12-02 02:04 | DVHPN2 ---
Progress Note Date Seen: Dec 02, 2024 Subjective SUBJECTIVE -Lochia minimal -Tolerating regular diet well. -Ambulating and voiding well w/o feeling lightheaded or dizzy. -Passing flatus but no BM yet -Combo feeding. - Contraceptive plan: Condoms -Desires and requests to be discharged home today (12/02) vital signs Vital Sign Date Time Temp Pulse Resp B/P (MAP) Pulse Ox O2 Delivery O2 Flow Rate FiO2 12/01/24 23:30 98.1 82 18 115/72 (86) 99 98.1 12/01/24 19:25 Room Air medications Current Medications Medications Dose Ordered Sig/[place] Route Start Time Stop Time Status Last Admin Dose Admin Lactated Ringer's 1,000 ml @ 125 mls/hr Q8H IV 12/01/24 07:30 12/01/24 14:49 125 MLS/HR Witch Luisa 1 pad PRN PRN TOP 12/01/24 07:30 12/01/24 18:05 1 PAD Sodium Lauryl Sulfate 240 ml PRN PRN TOP 12/01/24 07:30 12/01/24 18:06 240 ML Benzocaine 1 applic PRN PRN TOP 12/01/24 07:30 12/01/24 18:05 1 APPLIC Butorphanol Tartrate 1 mg Q4HPRN PRN IV 12/01/24 07:30 Butorphanol Tartrate 2 mg Q4HPRN PRN IV 12/01/24 07:30 Misoprostol 50 mcg Q4HPRN PRN PO 12/01/24 07:30 12/01/24 08:38 50 MCG Lidocaine HCl 20 ml ONCE PRN IJ 12/01/24 07:30 Terbutaline Sulfate 0.25 mg ONCE PRN SC 12/01/24 13:30 Oxytocin 1,000 ml @ 6 ml/hr Q24H IV 12/01/24 13:30 12/01/24 14:38 6 ML/HR Ibuprofen 600 mg Q6HP PRN PO 12/01/24 15:45 12/01/24 18:49 600 MG Acetaminophen 650 mg Q4HP PRN PO 12/01/24 15:45 12/01/24 23:23 650 MG Cefazolin Sodium 50 ml @ 100 mls/hr Q8HR IV 12/02/24 00:00 12/01/24 23:30 100 MLS/HR laboratory and microbiology Laboratory Tests 12/01/24 07:44 Test 12/01/24 07:44 Range/Units Serum Glucose 98 74-106 mg/dL Objective OBJECTIVE -A&O x4. No apparent distress. Affect appropriate -Afebrile, VSS -Chest: heart and lung sounds normal. -Breasts: Nipples intact w/o cracks or soreness -Abdomen: normal BS, soft, non-tender, no rebound or guarding, fundus firm @ U- 1, lochia minimal -Perineum: no edema, or erythema, intact -Extremities: no edema or tenderness -Lochia is minimal Problems(with codes): (1) (normal spontaneous vaginal delivery) Assessment/Plan ASSESSMENT -24 yo now ppd #1 s/p doing well. -Blood Type: A+ -Combo feeding -Rubella Immune PLAN -Continue pain management with oral medications as previously ordered -Increase fluid intake and fiber in diet to promote regular bowel movements, Laxative PRN -Encourage patient to continue taking vitamin and iron -Educated patient on self care and warning signs of PPH, PPD, and pre-eclampsia. Answered all pt questions and concerns -Continue routine care. Anticipate discharge today Plan discussed with: Patient Visit Coding OBGYN Date of Service: Dec 02, 2024 Billing Provider: CHRISTIANO LIANG CNM MATTING PRESS TENDER Common Visit Codes: 34349-JYQ/OBS SAME DATE (MOD) CHRISTIANO LIANG CNM Dec 02, 2024 02:04
--- NOTE | 2024-12-02 02:07 | DVHDS2 ---
Obstetrics Discharge Summary Obstetrics Discharge Summary Date of Admission: Dec 01, 2024 Date of Discharge: Dec 02, 2024 Reason For Admission: Induction of Labor (postdates) Intrapartum Procedures: Spontaneous vaginal deliv Operative Complicat: None Discharge Diagnosis: Term -Delivered Discharge Information: Activity (Unrestricted), Diet (Routine), Medications (See med list), Discharge to (Home), Discarge date (12/02/24) Discharge Care Plan Instructions - self care instructions given - emergency signs and symptoms including but not limited to pre-eclampsia precautions and signs of infection, PPH & of PPD reviewed with patient. -Follow up with OB Provider in 2 weeks and again at 6 weeks Visit Coding OBGYN Date of Service: Dec 02, 2024 Billing Provider: CHRISTIANO LIANG CNM CONE BAKER MACHINE Common Visit Codes: 42130-YIM/OBS DISCH DAY >30MIN CHRISTIANO LIANG CNM Dec 02, 2024 02:07
[2024-12-02 03:00] VITALS: BP 130/76; PULSE 91; RESP 17; TEMP 98.5; O2SAT 97
[2024-12-02 07:30] VITALS: BP 122/59; PULSE 93; RESP 16; TEMP 98.6; O2SAT 96
[2024-12-02 11:30] VITALS: BP 131/76; PULSE 97; RESP 18; TEMP 98.3; O2SAT 95
[2024-12-02 15:20] VITALS: BP 140/66; PULSE 88; RESP 18; TEMP 98.6; O2SAT 96
== END 2024-12-02 16:18 | disposition home or self-care (01) | DRG 560 ==
LOC: LDRP 05:18 → OBSVTOIN 07:15 → LDRP 07:15
PROVIDERS: ADMIT Obstetrics & Gynecology; ATTEND Obstetrics & Gynecology
PROC: 10E0XZZ Delivery of Products of Conception, External Approach (ICD-10-PCS; principal; 2024-12-01)
PROC: 3E0DXGC Introduction of Other Therapeutic Substance into Mouth and Pharynx, External Approach (ICD-10-PCS; 2024-12-01)
PROC: 3E0R3BZ Introduction of Anesthetic Agent into Spinal Canal, Percutaneous Approach (ICD-10-PCS; 2024-12-01)
PROC: 00HU33Z Insertion of Infusion Device into Spinal Canal, Percutaneous Approach (ICD-10-PCS; 2024-12-01)
DX: O48.0 Post-term pregnancy (principal); Z37.0 Single live birth; E66.01 Morbid (severe) obesity due to excess calories; Z3A.40 40 weeks gestation of pregnancy; O99.214 Obesity complicating childbirth
CPT/HCPCS: 36415; 59025; 59409; 62282; 76819; 80053; 80307; 81001; 81002; 82570; 84156; 84550; 85025; 85610; 85730; 86780; 86803; 86850; 86900; 86901; 94760; 96360; 96361; 96365; 96366; G0378; J2003; J2590